=== PATIENT | female | born 1940 | race Caucasian/White ===

== ENCOUNTER 2021-04-13 12:55 | Outpatient (CLI) | payer MEDICARE, OTHER ==
[2021-04-13 14:24] LABS: Hemoglobin 14.4 g/dL (12.0-15.5); Mean Corpuscular HGB CONC 32.1 g/dL (32.0-36.0); Mean Corpuscular Hemoglobin 27.3 pg (27.0-33.0); Mean Platelet Volume 9.3 fl (7.4-10.4); Platelet Count 353 10x3/uL (150-450); RBC Distribution Width 13.4 % (11.5-14.5); Red Blood Cell (RBC) Count 5.27 10x6/uL (3.90-5.03)
[2021-04-13 14:30] LABS: INR-International Normal Ratio 0.9; PTT 24.6 sec (22.0-33.0); Prothrombin Time 10.1 sec (9.5-12.1)
[2021-04-13 14:37] LABS: Anion Gap 16 mmol/L (10-20); BUN (Urea Nitrogen) 11 mg/dL (9.8-20.1); Calc. Creatinine Clearance 0 mL/min (70-130); Calcium 10.2 mg/dL (7.8-10.44); Carbon Dioxide 24 mmol/L (23-31); Chloride 105 mmol/L (98-107); Glucose 100 mg/dL (83-110); Potassium 4.6 mmol/L (3.5-5.1); Sodium 140 mmol/L (136-145)
[2021-04-14 00:58] LABS: SARS-CoV-2 PCR by NAA Not Detected (NotDetected)
== END 2021-04-13 12:56 | disposition home or self-care (01) ==
LOC: LABBT 12:55
PROVIDERS: ATTEND Surgery
DX: Z01.818 Encounter for other preprocedural examination (principal); M54.16 Radiculopathy, lumbar region; M48.062 Spinal stenosis, lumbar region with neurogenic claudication; Z20.822 Contact with and (suspected) exposure to COVID-19
CPT/HCPCS: 80048; 85027; 85610; 85730; U0003; U0005; 87635

== ENCOUNTER 2021-04-18 05:52 | Inpatient (IN) | payer MEDICARE, OTHER ==
[2021-04-18] MEDS ORDERED: Thrombin 5000 UNITS/5 ML VIAL ONE (06:41)
[2021-04-18] MEDS ORDERED: Fentanyl 100 MCG/2 ML VIAL ONE ×5 (06:49→12:45)
[2021-04-18] MEDS ORDERED: Rocuronium Bromide 10 MG/ML (10ML VIAL) ONE (07:47)
[2021-04-18] MEDS ORDERED: PROPOFOL 200 MG/20 ML VIAL ONE (07:47)
[2021-04-18] MEDS ORDERED: PHENYLEPHRINE-NS 100 MCG/ML 10 ML SYRINGE ONE (07:47)
[2021-04-18] MEDS ORDERED: Lidocaine 1% PF 5 ML VIAL ONE (07:47)
[2021-04-18] MEDS ORDERED: Dexamethasone 20 MG/5 ML VIAL ONE (07:47)
[2021-04-18] MEDS ORDERED: Glycopyrrolate 0.2 MG/ML 5 ML SYRINGE ONE (07:47)
[2021-04-18] MEDS ORDERED: Acetaminophen 325 MG TAB PO PRN (07:47)
[2021-04-18] MEDS ORDERED: traMADol HCl 50 MG TAB PO PRN (07:47)
[2021-04-18] MEDS ORDERED: Morphine 2 MG/ML VIAL SLOW IVP PRN (07:47)
[2021-04-18] MEDS ORDERED: Ondansetron PF 4 MG/2 ML Vial ONE (07:47)
[2021-04-18] MEDS ORDERED: tiZANidine HCl 4 MG TAB PO PRN (07:47)
[2021-04-18] MEDS ORDERED: ACETAMINOP PO PRN (07:51)
[2021-04-18] MEDS ORDERED: ISOMETHEPT PO PRN (07:51)
[2021-04-18] MEDS ORDERED: DICHLPHN PO PRN (07:51)
[2021-04-18] MEDS ORDERED: Fluticasone Propionate Nasal Spray 16 gm Bottle NASAL PRN (07:51)
[2021-04-18] MEDS ORDERED: Loratadine 10 MG TAB PO PRN (07:58)
[2021-04-18] MEDS ORDERED: Ondansetron HCl/PF 4 MG/2 ML Vial IVP PRN (09:37)
[2021-04-18] MEDS ORDERED: Promethazine HCl 25 MG/ML VIAL IM PRN (09:37)
[2021-04-18] MEDS ORDERED: Promethazine HCl 25 MG/ML VIAL SLOW IVP PRN (09:37)
[2021-04-18] MEDS: Multivitamins CHEW w/Iron Tablet PO SCH (11:21)
[2021-04-18] MEDS: Sodium Chloride 0.9% 1,000 ML IV SCH ×2 (11:21→17:50)
[2021-04-18] MEDS: Gabapentin 300 MG CAP PO SCH ×3 (11:21→20:12)
[2021-04-18] MEDS: Calcium Carbonate 600 MG + Vit D TAB PO SCH (11:21)
[2021-04-18] MEDS: Vitamin A 10,000 UNITS CAP PO SCH (11:22)
[2021-04-18 11:27] VITALS: BMI 28.8
[2021-04-18] MEDS: Acetaminophen/Codeine 30-300mg Tablet PO PRN (12:27)
[2021-04-18] MEDS ORDERED: Dexmedetomidine 200 MCG/2 ML VIAL ONE (12:46)
[2021-04-18] MEDS: CEFAZOLIN 2 GM in Premix Bag 1 BAG IVPB SCH ×2 (13:52→22:11)
[2021-04-18] MEDS: HYDROcodone/Acetaminophen 7.5/325 mg Tablet PO PRN (20:16)
[2021-04-19 05:41] LABS: #Lymphocytes 0.9 thou/uL (1.20-3.40); #Monocytes 0.9 thou/uL (0.11-0.59); #Neutrophils 10.4 thou/uL (1.40-6.50); %Eosinophils 0.1 % (0.0-10.0); %Lymphocytes 7.4 % (21.0-51.0); %Monocytes 7.1 % (0.0-10.0); %Neutrophils 85.4 % (42.0-75.0); Hemoglobin 12.9 g/dL (12.0-16.0); Mean Corpuscular HGB CONC 33.2 g/dL (32.0-36.0); Mean Corpuscular Hemoglobin 29.1 pg (27.0-31.0); Mean Corpuscular Volume 87.7 fL (78.0-98.0); Platelet Count 288 thou/uL (130-400); RBC Distribution Width 12.2 % (11.5-14.5); Red Blood Cell (RBC) Count 4.44 mill/uL (4.20-5.40); White Blood Cell (WBC) Count 12.1 thou/uL (4.8-10.8)
[2021-04-19] MEDS: Acetaminophen/Codeine 30-300mg Tablet PO PRN ×2 (05:41→12:15)
[2021-04-19] MEDS ORDERED: Levothyroxine Sodium 100 MCG TAB PO SCH (06:00)
[2021-04-19 06:03] LABS: Anion Gap 12 mmol/L (10-20); BUN (Urea Nitrogen) 16 mg/dL (9.8-20.1); Calc. Creatinine Clearance 71 mL/min (70-130); Calcium 8.9 mg/dL (7.8-10.44); Carbon Dioxide 27 mmol/L (23-31); Chloride 103 mmol/L (98-107); Glucose 127 mg/dL (83-110); Sodium 137 mmol/L (136-145)
[2021-04-19] MEDS: HYDROcodone/Acetaminophen 7.5/325 mg Tablet PO PRN (08:09)
[2021-04-19] MEDS: Calcium Carbonate 600 MG + Vit D TAB PO SCH (08:09)
[2021-04-19] MEDS: Gabapentin 300 MG CAP PO SCH ×2 (08:09→15:18)
[2021-04-19] MEDS: Vitamin A 10,000 UNITS CAP PO SCH (08:09)
[2021-04-19] MEDS: Multivitamins CHEW w/Iron Tablet PO SCH (08:09)
[2021-04-19] MEDS: Sodium Chloride 0.9% 1,000 ML IV SCH (10:24)
[2021-04-19 15:28] VITALS: BP 110/70; TEMP 97.9
== END 2021-04-19 17:59 | DRG 517 ==
LOC: SDC 05:52 → SURG A 07:47
PROVIDERS: ADMIT Surgery; ATTEND Surgery
PROC: 01NB0ZZ Release Lumbar Nerve, Open Approach (ICD-10-PCS; principal; 2021-04-18)
DX: M48.062 Spinal stenosis, lumbar region with neurogenic claudication (principal); M54.16 Radiculopathy, lumbar region; Z20.822 Contact with and (suspected) exposure to COVID-19; G43.909 Migraine, unspecified, not intractable, without status migrainosus; J30.2 Other seasonal allergic rhinitis; E03.9 Hypothyroidism, unspecified; M19.90 Unspecified osteoarthritis, unspecified site; Z90.710 Acquired absence of both cervix and uterus; Z79.899 Other long term (current) drug therapy
CPT/HCPCS: 36415; 76000; 80048; 85025; J0690; J1100; J2270; J2405; J2704; J3010; J3370

== ENCOUNTER 2024-12-12 02:54 | Inpatient (IN) | payer MEDICARE, OTHER ==
[2024-12-12] MEDS ORDERED: Calcium Carbonate 500 MG ChewTAB PO PRN (04:14)
[2024-12-12] MEDS ORDERED: Ondansetron ODT 4 MG TAB PO PRN (04:14)
[2024-12-12] MEDS ORDERED: Acetaminophen 650 MG Suppository PR PRN (04:14)
[2024-12-12] MEDS ORDERED: Ondansetron PF 4 MG/2 ML Vial IVP PRN (04:14)
[2024-12-12 05:04] LABS: #Basophils 0.04 10x3/uL (0.0-0.2); #Eosinophils Less than 0.03 10x3/uL (0.0-0.7); %Basophils 0.5 % (0.0-1.0); %Eosinophils 0.3 % (0.0-10.0); %Lymphocytes 23.8 % (21.0-51.0); %Monocytes 9.5 % (0.0-10.0); %Neutrophils 65.6 % (42.0-75.0); Hematocrit 43.3 % (36.0-47.0); Mean Corpuscular HGB CONC 32.3 g/dL (32.0-36.0); Mean Corpuscular Hemoglobin 27.8 pg (27.0-31.0); Mean Corpuscular Volume 85.9 fL (78.0-98.0); Mean Platelet Volume 9.4 fL (7.4-10.4); Platelet Count 269 10x3/uL (130-400); RBC Distribution Width 13.2 % (11.5-14.5); Red Blood Cell (RBC) Count 5.04 mill/uL (4.20-5.40)
[2024-12-12 05:28] LABS: Anion Gap 14 mmol/L (10-20); BUN (Urea Nitrogen) 8 mg/dL (9.8-20.1); Calc. Creatinine Clearance 0 mL/min (70-130); Calcium 9.1 mg/dL (7.8-10.44); Carbon Dioxide 22 mmol/L (23-31); Chloride 103 mmol/L (98-107); Estimated GFR 85; Glucose 113 mg/dL (83-110); Potassium 3.6 mmol/L (3.5-5.1); Sodium 135 mmol/L (136-145)
[2024-12-12] MEDS: Famotidine/PF 20 mg/2ml Vial SLOW IVP SCH (08:38)
[2024-12-12] MEDS: Levothyroxine Sodium 100 MCG TAB PO SCH (08:38)
[2024-12-12] MEDS: Famotidine 20 MG TAB PO SCH (08:38)
[2024-12-12] MEDS: FLU (Fluad Triv) TS24-25 (65UP)/MF59C/PF 45 MCG/0.5 ML Syringe IM ONE (08:39)
[2024-12-12] MEDS: Acetaminophen 325 MG TAB PO PRN (08:39)
[2024-12-12] MEDS ORDERED: hydrALAZINE 20 MG/ML VIAL SLOW IVP PRN (10:35)
[2024-12-12] MEDS: Aspirin 81 mg Enteric Coated Tablet PO SCH (12:22)
[2024-12-12] MEDS: cefTRIAXone\\ROCEPHIN 1 GM in Sodium Chloride 0.9% 100 ML IVPB SCH (12:23)
[2024-12-12] MEDS: Enoxaparin 40 MG (0.4 mL) SYRINGE SC SCH (12:23)
[2024-12-12] MEDS: Atorvastatin Calcium 40 MG TAB PO SCH (20:29)
[2024-12-13 04:22] LABS: #Basophils 0.05 10x3/uL (0.0-0.2); %Basophils 0.7 % (0.0-1.0); %Eosinophils 2.4 % (0.0-10.0); %Lymphocytes 23.5 % (21.0-51.0); %Monocytes 7.7 % (0.0-10.0); %Neutrophils 65.4 % (42.0-75.0); Hematocrit 40.5 % (36.0-47.0); Mean Corpuscular HGB CONC 32.1 g/dL (32.0-36.0); Mean Corpuscular Volume 87.1 fL (78.0-98.0); Platelet Count 266 10x3/uL (130-400); Red Blood Cell (RBC) Count 4.65 mill/uL (4.20-5.40)
[2024-12-13 04:50] LABS: Anion Gap 11 mmol/L (10-20); BUN (Urea Nitrogen) 14 mg/dL (9.8-20.1); Calc. Creatinine Clearance 0 mL/min (70-130); Calcium 9.1 mg/dL (7.8-10.44); Carbon Dioxide 28 mmol/L (23-31); Cardiac Risk 4.5 (Less than 4.5); Chloride 102 mmol/L (98-107); Cholesterol 188 mg/dl (< 200 Desired); Estimated GFR 81; Glucose 106 mg/dL (83-110); HDL Cholesterol 42 mg/dL (>60 Neg Risk); LDL Cholesterol, Calculated 122 mg/dL; Potassium 3.6 mmol/L (3.5-5.1); Sodium 137 mmol/L (136-145); Triglycerides 118 mg/dL (Less than 150)
[2024-12-13] MEDS: Levothyroxine Sodium 100 MCG TAB PO SCH (05:38)
[2024-12-13] MEDS: Aspirin 81 mg Enteric Coated Tablet PO SCH (08:25)
[2024-12-13] MEDS: SUMAtriptan Succinate 50 MG TAB PO PRN (08:25)
[2024-12-13] MEDS: Multivitamin W/ Minerals 1 TAB PO SCH (08:25)
[2024-12-13] MEDS: Enoxaparin 40 MG (0.4 mL) SYRINGE SC SCH (13:45)
[2024-12-14 17:42] VITALS: BP 153/75; TEMP 98.7
== END 2024-12-14 17:44 | disposition home or self-care (01) | DRG 689 ==
LOC: 2SE 03:53 → OBSVTOIN 12-14 11:23
PROVIDERS: ADMIT Student in an Organized Health Care Education/Training Program; ATTEND Internal Medicine
DX: N39.0 Urinary tract infection, site not specified (principal); G93.41 Metabolic encephalopathy; I65.22 Occlusion and stenosis of left carotid artery; E03.9 Hypothyroidism, unspecified; M19.90 Unspecified osteoarthritis, unspecified site; G43.909 Migraine, unspecified, not intractable, without status migrainosus; Z98.49 Cataract extraction status, unspecified eye; Z98.890 Other specified postprocedural states; Z90.710 Acquired absence of both cervix and uterus; Z80.3 Family history of malignant neoplasm of breast; I45.10 Unspecified right bundle-branch block
CPT/HCPCS: 36415; 70551; 80048; 80061; 84443; 85025; 96372; 96374; 96376; G0378; J0696; J1650